=== PATIENT | female | born 1955 | race African-American/Black ===

== ENCOUNTER 2019-06-01 05:25 | Inpatient (IN) ==
[2019-06-01] MEDS ORDERED: CLINDAMYCIN INJ 50 ML IV ONE (05:46)
[2019-06-01] MEDS ORDERED: VANCOMYCIN 1,000 MG VIAL ONE (05:46)
[2019-06-01] MEDS ORDERED: VANCOMYCIN INJ 1,000 MG in SODIUM CHLORIDE 0.9% 250 ML IV ONE (06:00)
[2019-06-01] MEDS ORDERED: LACTATED RINGERS 1,000 ML IV SCH (06:00)
[2019-06-01] MEDS ORDERED: ROPIVACAINE 0.5% 30 ML VIAL ONE (06:09)
[2019-06-01] MEDS ORDERED: fentaNYL 100 MCG/2 ML VIAL ONE (06:09)
[2019-06-01] MEDS ORDERED: DEXAMETHASONE 4 MG/1 ML VIAL ONE (06:10)
[2019-06-01] MEDS ORDERED: MIDAZOLAM 2 MG/2 ML VIAL ONE (06:10)
[2019-06-01] MEDS ORDERED: EPINEPHrine 1 MG/ML VIAL ONE (06:10)
[2019-06-01] MEDS ORDERED: ACETAMINOPHEN 500 MG TABLET PO STA (06:26)
[2019-06-01] MEDS ORDERED: SCOPOLAMINE 1.5 MG PATCH TRANSDERM STA (06:26)
[2019-06-01] MEDS ORDERED: FAMOTIDINE 20 MG TABLET PO STA (06:26)
[2019-06-01] MEDS ORDERED: TRANEXAMIC ACID 1,000 MG/10 ML VIAL ONE (06:36)
[2019-06-01] MEDS ORDERED: CLINDAMYCIN INJ 900 MG in PREMIX 1 EACH IV ONE (07:00)
[2019-06-01] MEDS ORDERED: diphenhydrAMINE CAP 25 MG CAPSULE PO PRN (07:22)
[2019-06-01] MEDS ORDERED: PEG HYPROMELLOSE GLYCERIN BOTH EYES PRN (07:22)
[2019-06-01] MEDS ORDERED: ALBUTEROL 2.5 MG/3 ML NEB RESP TX PRN (07:22)
[2019-06-01] MEDS ORDERED: OLOPATADINE BOTH EYES PRN (07:22)
[2019-06-01] MEDS ORDERED: PRAMIPEXOLE 0.25 MG TABLET PO PRN (07:22)
[2019-06-01] MEDS ORDERED: oxyCODONE IR 5 MG TABLET PO PRN (07:24)
[2019-06-01] MEDS ORDERED: MORPHINE 4 MG/1 ML VIAL IV PRN (07:24)
[2019-06-01] MEDS ORDERED: ONDANSETRON 4 MG/2 ML VIAL IV PRN (07:24)
[2019-06-01] MEDS ORDERED: MAGNESIUM HYDROXIDE SUSP 30 ML UDCUP PO PRN (07:24)
[2019-06-01] MEDS ORDERED: BACITRACIN OINT 0.9 GM PACK TOP ONE (08:31)
[2019-06-01] MEDS ORDERED: SEVOFLURANE 1 UNIT/15 MINUTE INH ONE (09:18)
[2019-06-01] MEDS ORDERED: propofoL 200 MG/20 ML VIAL IV ONE (09:18)
[2019-06-01] MEDS ORDERED: ONDANSETRON 4 MG/2 ML VIAL ONE (09:19)
[2019-06-01] MEDS ORDERED: PHENYLEPHRINE 10 MG/1 ML VIAL IV ONE (09:19)
[2019-06-01] MEDS ORDERED: PHENYLEPHRINE 1 MG/10 ML SYRINGE IV ONE (09:19)
[2019-06-01] MEDS ORDERED: ROCURONIUM 100 MG/10 ML VIAL IV ONE (09:20)
[2019-06-01] MEDS ORDERED: NEOSTIGMINE 10 MG/10 ML VIAL ONE (09:20)
[2019-06-01] MEDS: ESCITALOPRAM 10 MG TABLET PO SCH (12:36)
[2019-06-01] MEDS: PANTOPRAZOLE 40 MG TABLET PO SCH (12:36)
[2019-06-01] MEDS: MULTIVITAMIN (CENTRUM) TABLET PO SCH (12:36)
[2019-06-01] MEDS: CLINDAMYCIN INJ 900 MG in PREMIX 1 EACH IV SCH ×2 (12:37→20:49)
[2019-06-01] MEDS: FLUTICASONE/SALMETEROL 250-50 DISKUS 14 DOSE INH SCH ×3 (12:49→20:53)
[2019-06-01] MEDS: LACTATED RINGERS 1,000 ML IV SCH (16:13)
[2019-06-01] MEDS: oxyCODONE IR 5 MG TABLET PO PRN ×2 (16:19→21:50)
[2019-06-01] MEDS: KETOROLAC 30 MG/1 ML VIAL IV PRN (19:45)
[2019-06-01] MEDS: oxyCODONE/ACETAMINOPHEN 5-325 MG TABLET PO PRN (19:45)
[2019-06-01] MEDS: LATANOPROST 0.005% OPH SOLN 2.5 ML BOTTLE BOTH EYES SCH (20:48)
[2019-06-01] MEDS: MORPHINE 4 MG/1 ML VIAL IV PRN (20:50)
[2019-06-02] MEDS: LACTATED RINGERS 1,000 ML IV SCH ×2 (01:43→02:51)
[2019-06-02] MEDS: oxyCODONE IR 5 MG TABLET PO PRN ×3 (03:52→21:53)
[2019-06-02] MEDS: KETOROLAC 30 MG/1 ML VIAL IV PRN ×2 (03:53→12:32)
[2019-06-02 05:54] LABS: Basophils % 0.2 % (0.0-0.8); Eosinophils % 0.4 % (0.00-10.9); Hematocrit 30.5 VOL% (35.7-47.0); Hemoglobin 9.9 GM/DL (12.0-16.0); Immature Granulocytes % 0.6 %; Immature Granulocytes Absolute 0.03 #; Lymphocytes # 1.3 10*3/uL (1.4-4.0); Lymphocytes % 24.3 % (21.3-54.2); Mean Corpuscular HGB Conc 32.5 GM/DL (32-36); Mean Corpuscular Volume 90.8 FL (87-102); Mean Platelet Volume 9.1 FL (9.6-12.0); Neutrophils % 65.5 % (38.7-73.9); Platelet Count 253 T/CUMM (130-400); Red Blood Count 3.36 MC/CUMM (3.8-5.5); Red Cell Distribution Width 13.7 % (9.3-17.3); White Blood Count 5.4 T/CUMM (4-12)
[2019-06-02] MEDS: MORPHINE 4 MG/1 ML VIAL IV PRN ×3 (07:13→20:45)
[2019-06-02] MEDS: TRIAMTERENE/HCTZ 37.5-25 MG TABLET PO SCH (09:16)
[2019-06-02] MEDS: PANTOPRAZOLE 40 MG TABLET PO SCH (09:16)
[2019-06-02] MEDS: MULTIVITAMIN (CENTRUM) TABLET PO SCH (09:16)
[2019-06-02] MEDS: CHLORTHALIDONE 25 MG TABLET PO SCH (09:16)
[2019-06-02] MEDS: ESCITALOPRAM 10 MG TABLET PO SCH (09:17)
[2019-06-02] MEDS: FLUTICASONE/SALMETEROL 250-50 DISKUS 14 DOSE INH SCH ×2 (09:19→20:40)
[2019-06-02] MEDS: oxyCODONE/ACETAMINOPHEN 5-325 MG TABLET PO PRN (19:03)
[2019-06-02] MEDS: LATANOPROST 0.005% OPH SOLN 2.5 ML BOTTLE BOTH EYES SCH (20:38)
[2019-06-03] MEDS: oxyCODONE/ACETAMINOPHEN 5-325 MG TABLET PO PRN ×2 (02:19→08:54)
[2019-06-03] MEDS: MORPHINE 4 MG/1 ML VIAL IV PRN (03:21)
[2019-06-03 08:52] VITALS: BP 116/51
[2019-06-03] MEDS: MULTIVITAMIN (CENTRUM) TABLET PO SCH (08:54)
[2019-06-03] MEDS: PANTOPRAZOLE 40 MG TABLET PO SCH (08:55)
[2019-06-03] MEDS: ESCITALOPRAM 10 MG TABLET PO SCH (08:55)
[2019-06-03] MEDS: TRIAMTERENE/HCTZ 37.5-25 MG TABLET PO SCH (08:56)
[2019-06-03] MEDS: CHLORTHALIDONE 25 MG TABLET PO SCH (08:56)
[2019-06-03] MEDS: FLUTICASONE/SALMETEROL 250-50 DISKUS 14 DOSE INH SCH (08:57)
== END 2019-06-03 10:40 | disposition home or self-care (01) | DRG 483 ==
LOC: N.SDSINP 05:25 → N.3E 09:37
PROVIDERS: ADMIT Orthopaedic Surgery; ATTEND Orthopaedic Surgery